=== PATIENT | female | born 2000 | race American Indian/Alaskan Native ===

== ENCOUNTER 2022-01-20 07:05 | Inpatient (IN) | payer SELFPAY ==
[~2022-01-20 07:05] MED LIST: Bupivacaine 0.25% 10 ML SDV ONE
[2022-01-20] MEDS ORDERED: Lactated Ringers 1,000 ML ONE (07:43)
[2022-01-20] MEDS ORDERED: Oxytocin/Lactated Ringers 10 UNIT/1,000 ML BAG IV ONE (07:44)
[2022-01-20] MEDS: Lactated Ringers 1,000 ML IV SCH ×3 (07:55→17:55)
[2022-01-20] MEDS ORDERED: Ampicillin 2 GM in Sodium Chloride 0.9% 100 ML IV ONE (09:00)
[2022-01-20] MEDS ORDERED: Sodium Chloride 0.9% 10 ML Syringe FLUSH PRN (09:00)
[2022-01-20] MEDS ORDERED: Ondansetron 4 MG/2 ML SDV IVPUSH PRN (09:00)
[2022-01-20] MEDS ORDERED: Oxytocin/Lactated Ringers 10 UNIT/1,000 ML BAG IV SCH ×2 (09:00)
[2022-01-20] MEDS ORDERED: Nalbuphine HCl 10 MG/ 1ML Amp IVPUSH PRN (09:00)
[2022-01-20] MEDS: Ampicillin 1 GM in Sodium Chloride 0.9% 100 ML IV SCH ×3 (13:05→20:43)
[2022-01-20] MEDS ORDERED: ePHEDrine 50 MG/ML SDV IVPUSH PRN (13:12)
[2022-01-20] MEDS ORDERED: diphenhydrAMINE 50 MG/ML SDV IVPUSH PRN (13:12)
[2022-01-20] MEDS: Bupivacaine/fentaNYL/NS 100 ML Bag EPIDUR PRN ×2 (13:19→20:43)
[2022-01-20] MEDS: fentaNYL 100 MCG/2 ML SDV EPIDUR PRN ×2 (13:21→17:23)
[2022-01-20] MEDS: Sodium Chloride 0.9% 10 ML Syringe FLUSH SCH ×2 (19:37→22:21)
[2022-01-21] MEDS: Ampicillin 1 GM in Sodium Chloride 0.9% 100 ML IV SCH (01:59)
[2022-01-21] MEDS ORDERED: Acetaminophen 325 MG Tab PO PRN (02:14)
[2022-01-21] MEDS ORDERED: Ibuprofen 600 MG Tab PO PRN (02:14)
[2022-01-21] MEDS ORDERED: Witch Hazel Medicated Pads 40/Jar TOP PRN (02:14)
[2022-01-21] MEDS ORDERED: Benzocaine/Menthol 20%-0.5% Spray 78 GM Cannister TOP PRN (02:14)
[2022-01-21] MEDS ORDERED: Docusate Sodium 100 MG Cap PO PRN (02:14)
[2022-01-22] MEDS ORDERED: Measles, Mumps & Rubella Vaccine 0.5 ML SDV SUBCUT ONE (08:00)
[2022-01-22] MEDS ORDERED: Hydrocortisone 1% Crm 30 GM Tube TOP PRN (09:21)
== END 2022-01-22 12:37 | disposition home or self-care (01) | DRG 807 ==
LOC: JD.OB 07:05 → OBSVTOIN 12:26 → JD.OB 01-21 00:26
PROVIDERS: ADMIT Obstetrics & Gynecology; ATTEND Obstetrics & Gynecology
PROC: 10E0XZZ Delivery of Products of Conception, External Approach (ICD-10-PCS; principal; 2022-01-21)
PROC: 0KQM0ZZ Repair Perineum Muscle, Open Approach (ICD-10-PCS; 2022-01-21)
PROC: 10907ZC Drainage of Amniotic Fluid, Therapeutic from Products of Conception, Via Natural or Artificial Opening (ICD-10-PCS; 2022-01-21)
PROC: 3E0R3BZ Introduction of Anesthetic Agent into Spinal Canal, Percutaneous Approach (ICD-10-PCS; 2022-01-21)
PROC: 00HU33Z Insertion of Infusion Device into Spinal Canal, Percutaneous Approach (ICD-10-PCS; 2022-01-21)
DX: O48.0 Post-term pregnancy (principal); Z37.0 Single live birth; Z3A.40 40 weeks gestation of pregnancy; O99.824 Streptococcus B carrier state complicating childbirth; O70.1 Second degree perineal laceration during delivery
CPT/HCPCS: 36415; 51702; 59020; 59409; 85027; 86592; 86850; 86900; 86901; 90471; 90707; A9270-GY; J0290; J2590; J3010; J3490; J7120

== ENCOUNTER 2022-01-29 17:06 | Observation (INO) | payer SELFPAY ==
[2022-01-29] MEDS ORDERED: Misoprostol 200 MCG Tab ONE (17:24)
[2022-01-29] MEDS ORDERED: Misoprostol 100 MCG Tab PO ONE (17:26)
[2022-01-29 18:23] LABS: ESTIMATED GFR 129 mL/min (>60)
[2022-01-29] MEDS ORDERED: Misoprostol 200 MCG Tab PO SCH (19:15)
[2022-01-29] MEDS ORDERED: Ibuprofen 600 MG Tab PO PRN (19:15)
[2022-01-29] MEDS ORDERED: Sodium Chloride 0.9% 10 ML Syringe FLUSH PRN (19:15)
[2022-01-29] MEDS: Misoprostol 200 MCG Tab PO SCH (23:42)
[2022-01-30] MEDS ORDERED: diphenhydrAMINE 25 MG Cap PO ONE (01:59)
[2022-01-30] MEDS: Misoprostol 200 MCG Tab PO SCH (05:52)
== END 2022-01-30 09:57 | disposition home or self-care (01) ==
LOC: JD.ED 17:06 → UNDOADMOB 17:48 → JD.OB 17:48
PROVIDERS: ADMIT Obstetrics & Gynecology; ATTEND Obstetrics & Gynecology
DX: O72.2 Delayed and secondary postpartum hemorrhage (principal); Z88.0 Allergy status to penicillin; Z91.013 Allergy to seafood; Z79.899 Other long term (current) drug therapy
CPT/HCPCS: 36415; 76857; 80053; 85025; 86850; 86900; 86901; A9270

== ENCOUNTER 2023-10-20 06:52 | Inpatient (IN) | payer SELFPAY ==
[~2023-10-20 06:52] MED LIST changes: -Bupivacaine 0.25% 10 ML SDV ONE; +Ropivacaine 0.2% PF 2 MG/ML 20 ML SDV ONE
[2023-10-20] MEDS ORDERED: Sodium Chloride 0.9% 10 ML Syringe FLUSH PRN (07:13)
[2023-10-20] MEDS ORDERED: Lidocaine 1% 50 ML MDV INJECT PRN (07:13)
[2023-10-20] MEDS ORDERED: Nalbuphine 10 MG/ML Syringe IVPUSH PRN (07:13)
[2023-10-20 07:44] LABS: BASOPHILS PERCENT AUTO 0.4 % (0.0-1.0); EOSINOPHILS ABSOLUTE AUTO 0.1 K/mm3 (0.0-0.4); EOSINOPHILS PERCENT AUTO 1.1 % (0.0-6.0); HEMATOCRIT 40.6 % (37.0-47.0); HEMOGLOBIN 14.2 gm/dl (12.0-16.0); IMMATURE GRAN ABSOLUTE AUTO 0.07 K/mm3 (0.00-0.05); IMMATURE GRAN PERCENT AUTO 0.8 % (0.0-0.4); LYMPHOCYTES ABSOLUTE AUTO 1.5 K/mm3 (1.0-4.8); LYMPHOCYTES PERCENT AUTO 18.4 % (24.0-44.0); MEAN CORPUSCULAR HEMOGLOBIN 31.4 pg (28.0-32.0); MEAN CORPUSCULAR VOLUME 89.8 fl (83.0-99.0); MEAN PLATELET VOLUME 10.9 fl (9.4-12.3); MONOCYTES ABSOLUTE AUTO 0.9 K/mm3 (0.0-0.8); MONOCYTES PERCENT AUTO 11.3 % (0.0-8.0); NEUTROPHILS ABSOLUTE AUTO 5.6 K/mm3 (1.8-7.7); PLATELET COUNT,PLT 230 K/mm3 (150-400); RED BLOOD CELL COUNT 4.52 M/mm3 (4.10-5.30); WHITE BLOOD CELL COUNT,WBC 8.25 K/mm3 (3.9-11.3)
[2023-10-20] MEDS: Sodium Chloride 0.9% 10 ML Syringe FLUSH SCH (09:00)
[2023-10-20] MEDS: Lactated Ringers 1,000 ML IV SCH (10:01)
[2023-10-20] MEDS: Oxytocin/Lactated Ringers 30 UNIT/500 ML BAG IV SCH (10:02)
[2023-10-20] MEDS ORDERED: ePHEDrine 50 MG/ML SDV IVPUSH PRN (10:13)
[2023-10-20] MEDS ORDERED: diphenhydrAMINE 50 MG/ML SDV IVPUSH PRN (10:13)
[2023-10-20] MEDS: fentaNYL 100 MCG/2 ML SDV EPIDUR PRN (11:56)
[2023-10-20] MEDS: Bupivacaine/fentaNYL/NS 100 ML Bag EPIDUR PRN (11:57)
[2023-10-20] MEDS: Witch Hazel Medicated Pads 40/Jar TOP PRN (19:17)
[2023-10-20] MEDS: Benzocaine/Menthol 20%-0.5% Spray 78 GM Cannister TOP PRN (19:18)
[2023-10-20] MEDS: Ibuprofen 600 MG Tab PO SCH (19:18)
[2023-10-21] MEDS: Acetaminophen 325 MG Tab PO PRN (09:26)
== END 2023-10-21 18:45 | disposition home or self-care (01) | DRG 807 ==
LOC: JD.OB 06:52 → OBSVTOIN 15:45 → JD.OB 15:46
PROVIDERS: ADMIT Obstetrics & Gynecology; ATTEND Obstetrics & Gynecology
PROC: 10E0XZZ Delivery of Products of Conception, External Approach (ICD-10-PCS; principal; 2023-10-20)
PROC: 0KQM0ZZ Repair Perineum Muscle, Open Approach (ICD-10-PCS; 2023-10-20)
PROC: 10907ZC Drainage of Amniotic Fluid, Therapeutic from Products of Conception, Via Natural or Artificial Opening (ICD-10-PCS; 2023-10-20)
PROC: 3E033VJ Introduction of Other Hormone into Peripheral Vein, Percutaneous Approach (ICD-10-PCS; 2023-10-20)
PROC: 3E0R3BZ Introduction of Anesthetic Agent into Spinal Canal, Percutaneous Approach (ICD-10-PCS; 2023-10-20)
PROC: 00HU33Z Insertion of Infusion Device into Spinal Canal, Percutaneous Approach (ICD-10-PCS; 2023-10-20)
DX: O48.0 Post-term pregnancy (principal); Z37.0 Single live birth; O70.1 Second degree perineal laceration during delivery; Z3A.40 40 weeks gestation of pregnancy; Z88.0 Allergy status to penicillin; Z91.013 Allergy to seafood; Z98.890 Other specified postprocedural states
CPT/HCPCS: 36415; 51701; 51702; 59025; 85025; 86592; 86850; 86900; 86901; A9270-GY; J2795; J3010; J3490; J7120; J7999